=== PATIENT | female | born 1990 | race Caucasian/White ===

== ENCOUNTER 2016-08-13 17:04 | Emergency (ER) | payer OTHER ==
[~2016-08-13] VITALS: Wt 77.1 kg
[~2016-08-13 17:04] MED LIST: ALBUTEROL0.09 MG/A2 IH; ALBUTEROL0.09 MG/A2 INH; AMOXICILLIN500 MG PO; AMOXIL500 MG PO; ATARAX25 MG PO; BACTRIM DS 8001 TA1 PO; CATAFLAM50 MG PO; CLARITIN10 MG PO; CLEOCIN HCL150 MG PO; CRANBERRY1 CAP PO; FLEXERIL5 MG PO; HYDROCODONE BIT1 T11 PO; KENALOG0.1% TP; LEVOFLOXACIN500 MG PO; MEDROL DOSEPAK4 MG PO; MOTRIN800 MG PO; NKHM; PEN-VEE K500 MG PO; PREDNICOT20 MG PO; PREDNISONE20 M1 PO; PRENATAL1 TA1 PO; PYRIDIUM200 M1 PO; ULTRAM50 MG PO; VICODIN 5/500 505 MG PO; ZITHROMAX Z PA250 MG PO
== END 2016-08-13 18:05 | disposition home or self-care (01) ==
LOC: ED 17:04
DX: L23.6 Allergic contact dermatitis due to food in contact with the skin (principal); F17.200 Nicotine dependence, unspecified, uncomplicated; Z88.6 Allergy status to analgesic agent

== ENCOUNTER 2017-01-23 22:20 | Emergency (ER) | payer OTHER ==
[~2017-01-23] VITALS: Ht 170.1 cm; Wt 74.8 kg
[2017-01-23] MEDS ORDERED: BENADRYL ALLERG25 M5 PO (22:35)
[2017-01-23] MEDS ORDERED: PREDNISONE20 M1 PO (22:35)
== END 2017-01-23 23:24 | disposition home or self-care (01) ==
LOC: ED 22:20
DX: L25.9 Unspecified contact dermatitis, unspecified cause (principal); F17.200 Nicotine dependence, unspecified, uncomplicated; Z88.8 Allergy status to other drugs, medicaments and biological substances

== ENCOUNTER 2017-10-12 20:01 | Emergency (ER) | payer SELFPAY ==
[~2017-10-12] VITALS: Ht 172.7 cm; Wt 77.1 kg
[~2017-10-12 20:01] MED LIST changes: +BENADRYL ALLERG25 M5 PO
[2017-10-12] MEDS ORDERED: AUGMENTIN 875875 MG PO (20:25)
== END 2017-10-12 20:47 | disposition home or self-care (01) ==
LOC: ED 20:01
DX: S91.351A Open bite, right foot, initial encounter (principal); L25.9 Unspecified contact dermatitis, unspecified cause; F17.200 Nicotine dependence, unspecified, uncomplicated; Z88.6 Allergy status to analgesic agent; Z79.899 Other long term (current) drug therapy; W54.0XXA Bitten by dog, initial encounter; Y93.89 Activity, other specified; Y92.89 Other specified places as the place of occurrence of the external cause; Y99.8 Other external cause status

== ENCOUNTER 2020-02-03 16:25 | Emergency (ER) | payer OTHER ==
[~2020-02-03] VITALS: Ht 175.2 cm; Wt 83.9 kg
[~2020-02-03 16:25] MED LIST changes: +AUGMENTIN 875875 MG PO
[2020-02-03] MEDS ORDERED: NORCO 5-325 TA1 EACH PO (18:48)
[2020-02-03] MEDS ORDERED: DOXYCYCLINE100 M3 PO (18:48)
== END 2020-02-03 19:00 | disposition home or self-care (01) ==
LOC: ED 16:25
DX: L03.115 Cellulitis of right lower limb (principal); M25.571 Pain in right ankle and joints of right foot; Z88.8 Allergy status to other drugs, medicaments and biological substances; Z79.899 Other long term (current) drug therapy

== ENCOUNTER 2021-01-31 20:48 | Emergency (ER) | payer OTHER ==
[~2021-01-31] VITALS: Ht 175.2 cm; Wt 93.0 kg
[~2021-01-31 20:48] MED LIST changes: +DOXYCYCLINE100 M3 PO; +NORCO 5-325 TA1 EACH PO
[2021-01-31 21:21] LABS: BASO # 0.1 10*3/uL (0.0-0.1); BASO % 0.5 % (0.0-1.0); EOS # 0.3 10*3/uL (0.0-0.4); EOS % 1.5 % (1.0-4.0); HEMATOCRIT 40.4 % (37.0-47.0); LYMPH # 3.7 10*3/uL (1.3-4.4); LYMPH % 22.9 % (27.0-41.0); MEAN CELL VOLUME 88.2 fl (81.0-99.0); MEAN CORPUSCULAR HGB 29.9 pg (27.0-31.0); MEAN CORPUSCULAR HGB CONC 33.9 g/dl (33.0-37.0); MEAN PLATELET VOLUME 9.3 fl (9.6-12.3); MONO # 0.9 10*3/uL (0.1-1.0); MONO % 5.3 % (3.0-9.0); NEUT # 11.3 10*3/uL (2.3-7.9); NEUT % 69.4 % (47.0-73.0); PLATELET COUNT AUTOMATED 368 10*3/uL (130-400); RED BLOOD COUNT 4.58 10*6/uL (4.10-5.10); RED CELL DISTRI WIDTH 12.5 % (0-14.5); WHITE BLOOD COUNT 16.3 10*3/uL (4.8-10.8)
[2021-01-31 21:41] LABS: ALBUMIN 3.4 gm/dl (3.1-4.5); ALKALINE PHOSPHATASE 92 U/L (45-117); BUN 11 mg/dl (7-24); CHLORIDE 110 mmol/L (98-107); CREATININE 0.81 mg/dL (0.55-1.02); LIPASE 87 U/L (73-393); POTASSIUM 3.9 mmol/L (3.5-5.1); SGOT/AST 12 IU/L (3-35); SGPT/ALT 22 U/L (12-78); SODIUM 139 mmol/L (136-145); TOTAL PROTEIN 7.2 gm/dL (6.4-8.2)
[2021-01-31 22:11] LABS: BILIRUBIN Negative (Negative); BLOOD Negative (Negative); CLARITY Turbid (Clear); COLOR Yellow (Yellow); GLUCOSE Negative (Negative); KETONE Trace (Negative); LEUKO ESTERASE Negative (Negative); NITRITE Negative (Negative); PH 7.5 (4.5-8.0); SPECIFIC GRAVITY 1.025 (1.001-1.030)
[2021-01-31 22:30] LABS: EPITHELIAL CELLS 21-30
== END 2021-02-01 00:12 | disposition home or self-care (01) ==
LOC: ED 20:48
PROVIDERS: Physician Assistant
DX: O26.90 Pregnancy related conditions, unspecified, unspecified trimester (principal); R10.9 Unspecified abdominal pain; Z3A.00 Weeks of gestation of pregnancy not specified

== ENCOUNTER → 2021-02-01 | Outpatient (CLI) | payer OTHER | END | disposition home or self-care (01) | LOC: US 16:12 | PROVIDERS: ATTEND Physician Assistant | DX: O20.9 Hemorrhage in early pregnancy, unspecified (principal); Z3A.01 Less than 8 weeks gestation of pregnancy ==

== ENCOUNTER 2022-03-06 19:38 | Emergency (ER) | payer OTHER | END 2022-03-06 20:48 | disposition left against medical advice (07) | LOC: ED 19:38 | DX: Z53.21 Procedure and treatment not carried out due to patient leaving prior to being seen by health care provider (principal) ==

== ENCOUNTER 2022-03-06 21:09 | Emergency (ER) | payer OTHER ==
[~2022-03-06] VITALS: Ht 175.2 cm; Wt 108.0 kg
== END 2022-03-07 00:53 | disposition home or self-care (01) ==
LOC: ED 21:09
DX: J06.9 Acute upper respiratory infection, unspecified (principal); Z20.822 Contact with and (suspected) exposure to COVID-19; Z88.8 Allergy status to other drugs, medicaments and biological substances; Z91.040 Latex allergy status

== ENCOUNTER 2024-02-11 18:23 | Emergency (ER) | payer OTHER ==
[~2024-02-11] VITALS: Ht 175.2 cm; Wt 90.7 kg
[2024-02-11] MEDS ORDERED: Ketorolac Tromethamine 30 MG/ML VIAL IM ONE (19:15)
[2024-02-11] MEDS ORDERED: methylPREDNISolone acetate 40 MG/ML VIAL IM ONE (19:15)
== END 2024-02-11 19:32 | disposition home or self-care (01) ==
LOC: ED 18:23
DX: H69.82 Other specified disorders of Eustachian tube, left ear (principal); J45.909 Unspecified asthma, uncomplicated; Z91.040 Latex allergy status; Z88.5 Allergy status to narcotic agent